=== PATIENT | male | born 1970 | race Two or more races ===

== ENCOUNTER 2016-06-16 22:43 | Emergency (ER) | payer SELFPAY ==
[~2016-06-16] VITALS: Ht 144.8 cm; Wt 63.5 kg
[2016-06-16 22:51] VITALS: BP 146/98
== END 2016-06-16 23:36 | disposition home or self-care (01) ==
LOC: ER 22:44
DX: K64.4 Residual hemorrhoidal skin tags (principal)
CPT/HCPCS: 99282; A4606; Z7610

== ENCOUNTER 2019-07-03 12:01 | Emergency (ER) | payer MEDICAID ==
[~2019-07-03] VITALS: Ht 154.9 cm; Wt 63.5 kg
[2019-07-03 12:12] VITALS: BP 180/90
== END 2019-07-03 13:03 | disposition home or self-care (01) ==
LOC: ER 12:06
DX: B35.9 Dermatophytosis, unspecified (principal)

== ENCOUNTER 2020-08-14 22:08 | Emergency (ER) | payer MEDICAID ==
[~2020-08-14] VITALS: Ht 154.9 cm; Wt 63.5 kg
--- NOTE | 2020-08-14 22:24 | NUR ---
PATIENT TO ER BED C/O LEFT SIDED CHEST PAIN THAT HAS BEEN ONGOING FOR 2x DAYS. PATIENT HAS BEEN DRINKING EVERYDAY WITH AT LEAST 6x CANS OF BEER. PATIENT IS ALERT AND ORIENTED x3. DENIES SHORTNESS OF BREATH. PATIENT IS CONNECTED TO THE CORPORATE SCHEDULER AND PLACED ON 2L OF N/C WITH 99% O2 SATURATION.
[2020-08-14] MEDS ORDERED: ONDANSETRON HCL/PF 4 MG/2 ML VIAL ONE (22:29)
[2020-08-14] MEDS ORDERED: ONDANSETRON HCL/PF 4 MG/2 ML VIAL IVP ONE (22:30)
[2020-08-14 22:32] LABS: BASOPHILS # (AUTO) 0.2 /CMM (0.0-0.2); BASOPHILS % (AUTO) 3.2 % (0.0-2.0); HEMATOCRIT 41 % (39-51); HEMOGLOBIN 14.2 g/dL (13.5-17.5); LYMPHOCYTES # (AUTO) 2.4 /CMM (0.8-4.8); LYMPHOCYTES % (AUTO) 40.9 % (20.0-44.0); MEAN CORPUSCULAR HGB CONC 35 g/dl (31.0-36.0); MEAN CORPUSCULAR VOLUME 98 fL (80-96); MONOCYTES # (AUTO) 0.3 /CMM (0.1-1.30); MONOCYTES % (AUTO) 4.9 % (2.0-12.0); NEUTROPHILS # (AUTO) 2.9 /CMM (1.8-8.9); PLATELET COUNT (AUTO) 175 /CMM (150-450); RED BLOOD CELL COUNT(AUTO) 4.22 MIL/uL (4.5-6.0); WHITE BLOOD COUNT (AUTO) 5.8 K/uL (4.3-11.0)
[2020-08-14 22:42] LABS: CALCIUM, SERUM 9.1 mg/dL (8.5-10.1); CARBON DIOXIDE 26 mmol/L (21-32); CHLORIDE 101 mmol/L (98-107); CREATININE 0.5 mg/dL (0.6-1.3); GLUCOSE 118 mg/dL (74-106); POTASSIUM 3.7 mmol/L (3.5-5.1); SODIUM SERUM 140 mmol/L (136-145); UREA NITROGEN, BLOOD 4 mg/dL (7-18)
--- NOTE | 2020-08-14 22:43 | NUR ---
XRAY AT BEDSIDE.
[2020-08-14 22:48] LABS: ALANINE AMINOTRANSFERASE 106 U/L (12-78); ALBUMIN 3.9 g/dL (3.4-5.0); ALKALINE PHOSPHATASE 144 U/L (46-116); ASPARTATE AMINOTRANSFERASE 211 U/L (15-37); BILIRUBIN,DIRECT 0.2 mg/dL (0.0-0.2); BILIRUBIN,TOTAL 0.4 mg/dL (0.2-1.0); TOTAL PROTEIN, SERUM 8.8 g/dL (6.4-8.2)
--- NOTE | 2020-08-14 23:41 | NUR ---
PANEL PAGED PER ER MD ORDER.
--- NOTE | 2020-08-14 23:49 | NUR ---
PATIENT'S FAMILY MEMBER ,TANIA WAS CALLED PER PATIENT'S REQUEST.
[2020-08-14 23:50] VITALS: BP 138/85
--- NOTE | 2020-08-14 23:52 | NUR ---
LORNA (DAUGHTER IN LAW) CONTACT INFORMATION: [phone]
--- NOTE | 2020-08-15 00:55 | NUR ---
Patient does not wish to proceed with medical care recommended by Dr. Kirkpatrick. Patient given information related to possible complications, up to and including , which could occur as a result of leaving the hospital at this time. Patient verbalizes understanding of risks involved due to leaving against medical advice. Patient has signed AMA form.
--- NOTE | 2020-08-15 01:06 | NUR ---
Patient is picked up by [id number], [place].
--- NOTE | 2020-08-15 01:06 | NUR ---
Patient discharged to home in stable condition. Written and verbal after care instructions given. Patient verbalizes understanding of instruction.
--- NOTE | 2020-08-15 01:06 | NUR ---
IV removed. Catheter intact and site benign. Pressure and 4x4 applied to site. No bleeding noted.
== END 2020-08-15 01:07 | disposition left against medical advice (07) ==
LOC: ER 22:10
DX: R07.89 Other chest pain (principal); K29.20 Alcoholic gastritis without bleeding; F10.129 Alcohol abuse with intoxication, unspecified; Y90.8 Blood alcohol level of 240 mg/100 ml or more; Z98.890 Other specified postprocedural states
CPT/HCPCS: 36415; 71045; 80048; 80076; 80320; 84484; 85025; 85730; 93005; 96374; 99285; J2405; G0480

== ENCOUNTER 2021-01-17 12:01 | Emergency (ER) | payer MEDICAID ==
[~2021-01-17] VITALS: Ht 154.9 cm; Wt 68.0 kg
[2021-01-17 12:12] VITALS: BP 132/88
[2021-01-17] MEDS ORDERED: NAPR-1192 PO (12:48)
--- NOTE | 2021-01-17 13:20 | NUR ---
Patient discharged to home in stable condition. Written and verbal after care instructions given. Patient verbalizes understanding of instruction.
== END 2021-01-17 13:47 | disposition home or self-care (01) ==
LOC: ER 12:25
DX: S52.592A Other fractures of lower end of left radius, initial encounter for closed fracture (principal); F10.10 Alcohol abuse, uncomplicated; F17.200 Nicotine dependence, unspecified, uncomplicated; Y90.9 Presence of alcohol in blood, level not specified; Z79.899 Other long term (current) drug therapy; W01.0XXA Fall on same level from slipping, tripping and stumbling without subsequent striking against object, initial encounter; Y93.89 Activity, other specified; Y92.89 Other specified places as the place of occurrence of the external cause; Y99.8 Other external cause status
CPT/HCPCS: 73110

== ENCOUNTER 2021-05-31 07:45 | Emergency (ER) | payer MEDICAID ==
[~2021-05-31] VITALS: Ht 154.9 cm; Wt 56.7 kg
[~2021-05-31 07:45] MED LIST: NAPR-1192 PO
--- NOTE | 2021-05-31 07:54 | NUR ---
ADONIS FROM HOME, C/O ORAL PAIN/BLEEDING SINCE LAST NIGHT. SEEN AND WAS ADVISED TO SEE A DENTIST YESTERDAY. TO ER BED 13, HOOKED TO MONITOR, CHANGED TO HOSP GOWN, WARM BLANKET PROVIDED. PATIENT AAO x , RESPIRATIONS EVEN AND UNLABORED. DR SEN AT BEDSIDE
[2021-05-31] MEDS ORDERED: MORPHINE SULFATE INJ 2 MG/ML DISP.SYRIN IV ONE (08:00)
[2021-05-31] MEDS ORDERED: ONDANSETRON HCL/PF 4 MG/2 ML VIAL IV ONE (08:00)
[2021-05-31] MEDS ORDERED: IV NS 0.9% 1,000 ML IV ONE (08:00)
[2021-05-31] MEDS ORDERED: ONDANSETRON HCL/PF 4 MG/2 ML VIAL ONE (08:04)
[2021-05-31] MEDS ORDERED: TRANEXAMIC ACID 1,000 MG/10 ML VIAL ONE (08:04)
[2021-05-31] MEDS ORDERED: MORPHINE SULFATE INJ 4 MG/ML DISP.SYRIN ONE (08:05)
[2021-05-31] MEDS ORDERED: TRANEXAMIC ACID 1,000 MG/10 ML VIAL IR ONE (08:30)
[2021-05-31 08:44] LABS: CALCIUM, SERUM 8.9 mg/dL (8.5-10.1); CREATININE 0.6 mg/dL (0.6-1.3); POTASSIUM 3.6 mmol/L (3.5-5.1)
[2021-05-31 08:58] LABS: BASOPHILS # (AUTO) 0.1 K/uL (0.0-0.2); BASOPHILS % (AUTO) 1.4 % (0.0-2.0); EOSINOPHILS % (AUTO) 0.2 % (0.0-6.0); HEMATOCRIT 35 % (39-51); HEMOGLOBIN 11.5 g/dL (13.5-17.5); LYMPHOCYTES # (AUTO) 0.7 K/uL (0.8-4.8); MEAN CORPUSCULAR HGB CONC 33 g/dl (31.0-36.0); MEAN CORPUSCULAR VOLUME 97 fL (80-96); MONOCYTES # (AUTO) 0.4 K/uL (0.1-1.30); MONOCYTES % (AUTO) 6.4 % (2.0-12.0); NEUTROPHILS # (AUTO) 4.4 K/uL (1.8-8.9); PLATELET COUNT (AUTO) 75 K/uL (150-450); RED BLOOD CELL COUNT(AUTO) 3.58 MIL/uL (4.5-6.0); WHITE BLOOD COUNT (AUTO) 5.5 K/uL (4.3-11.0)
[2021-05-31] MEDS ORDERED: IV NS 0.9% 250 ML IV ONE (09:00)
[2021-05-31] MEDS ORDERED: CT SWABBABLE VALVE TRANS SET 1 EA INFUS.SET MC ONE (09:00)
[2021-05-31] MEDS ORDERED: IOHEXOL-300 100 ML VIAL IV ONE (09:00)
--- NOTE | 2021-05-31 09:00 | NUR ---
THE PATIENT IS TAKEN TO CT VIA W/CHAIR
--- NOTE | 2021-05-31 09:18 | NUR ---
THE PATIENT IS BACK FROM CT VIA W/CHAIR
--- NOTE | 2021-05-31 10:52 | NUR ---
CALLED [facility] AND SPOKED TO SHARON. ALSO, FAXED CLINICALS TO [phone]
[2021-05-31] MEDS ORDERED: VANCOMYCIN 1 GM in IV D5W 250 ML IV ONE (11:00)
[2021-05-31] MEDS ORDERED: PIPERACILLIN /TAZOBACTAM 3.375 G in IV D5W 50 ML IV ONE (11:00)
--- NOTE | 2021-05-31 11:02 | NUR ---
FAXED CLINICALS TO
--- NOTE | 2021-05-31 11:03 | NUR ---
CALLED [facility] AND WAS NOTIFIED THAT THEY ARE CURRENTLY AT [facility].
--- NOTE | 2021-05-31 11:11 | NUR ---
FAXED CLINICALS TO [facility]. AWAITING FEEDBACK
[2021-05-31] MEDS ORDERED: AMOX-430 PO (12:59)
--- NOTE | 2021-05-31 13:29 | NUR ---
Patient does not wish to proceed with medical care recommended by Dr. Arreola. Patient given information related to possible complications, up to and including , which could occur as a result of leaving the hospital at this time. Patient verbalizes understanding of risks involved due to leaving against medical advice. Patient has signed AMA form.
[2021-05-31 13:30] VITALS: BP 131/78
== END 2021-05-31 13:31 | disposition left against medical advice (07) ==
LOC: ER 07:53
DX: L02.01 Cutaneous abscess of face (principal); K06.8 Other specified disorders of gingiva and edentulous alveolar ridge; D64.9 Anemia, unspecified; D69.6 Thrombocytopenia, unspecified; Z53.29 Procedure and treatment not carried out because of patient's decision for other reasons; Z20.822 Contact with and (suspected) exposure to COVID-19; F10.20 Alcohol dependence, uncomplicated
CPT/HCPCS: 36415; 70487; 80048; 85025; 85730; 86850; 87040 ×2; 87426; 96361; 96365; 96368; 96375; 99291; C9803; J2270; J2405; J2543; J3370; J7030; J7050; J7060; Q9967

== ENCOUNTER 2021-06-07 12:55 | Emergency (ER) | payer MEDICAID ==
[~2021-06-07] VITALS: Ht 152.4 cm; Wt 59.0 kg
[~2021-06-07 12:55] MED LIST changes: +AMOX-430 PO
[2021-06-07 13:36] VITALS: BP 130/84
--- NOTE | 2021-06-07 14:06 | NUR ---
BIBS C/O RT LOWER LEG RASH AND ITCHING [id number]
[2021-06-07] MEDS ORDERED: CLOT15CR5 TP (15:11)
== END 2021-06-07 15:20 | disposition home or self-care (01) ==
LOC: ER 13:01
DX: B35.9 Dermatophytosis, unspecified (principal); B49 Unspecified mycosis; F17.200 Nicotine dependence, unspecified, uncomplicated

== ENCOUNTER 2021-10-01 19:52 | Emergency (ER) | payer MEDICAID, OTHER ==
[~2021-10-01] VITALS: Ht 152.4 cm; Wt 59.0 kg
[~2021-10-01 19:52] MED LIST changes: +CLOT15CR5 TP
[2021-10-01 20:13] VITALS: BP 134/74
[2021-10-01] MEDS ORDERED: CLOT15CR5 TP (20:18)
--- NOTE | 2021-10-01 20:33 | NUR ---
Patient discharged to home in stable condition. Written and verbal after care instructions given. Patient verbalizes understanding of instruction.
== END 2021-10-01 21:44 | disposition home or self-care (01) ==
LOC: ER 20:02
DX: B35.9 Dermatophytosis, unspecified (principal); F17.200 Nicotine dependence, unspecified, uncomplicated; Z79.899 Other long term (current) drug therapy

== ENCOUNTER 2023-09-16 00:11 | Emergency (ER) | payer OTHER ==
[~2023-09-16] VITALS: Ht 167.6 cm; Wt 68.0 kg
[2023-09-16 01:29] VITALS: BP 156/86; TEMP 97.7
[2023-09-16] MEDS ORDERED: KETOROLAC TROMETHAMINE INJ 30 MG/ML VIAL ONE (01:51)
[2023-09-16] MEDS ORDERED: HYDROCODONE/APAP 5/325MG TABLET ONE (01:51)
[2023-09-16] MEDS ORDERED: TDAP [DIPH/PERTUSSIS/TET] 0.5 ML VIAL IM ONE (01:51)
[2023-09-16] MEDS ORDERED: BACI500P4 TP (01:56)
[2023-09-16] MEDS ORDERED: HYDR-4209 PO (01:56)
[2023-09-16] MEDS ORDERED: CEPH-570 PO (01:56)
[2023-09-16] MEDS ORDERED: KETO10TA2 PO (01:56)
[2023-09-16] MEDS: TDAP [DIPH/PERTUSSIS/TET] 0.5 ML VIAL IM ONE (01:58)
[2023-09-16] MEDS: KETOROLAC TROMETHAMINE INJ 60 MG/2 ML VIAL IM ONE (01:58)
[2023-09-16] MEDS: HYDROCODONE/APAP 5/325MG TABLET PO ONE (01:58)
[2023-09-16 02:46] VITALS: O2SAT 99
== END 2023-09-16 02:47 | disposition home or self-care (01) ==
LOC: ER 00:13
DX: T24.232A Burn of second degree of left lower leg, initial encounter (principal); F17.200 Nicotine dependence, unspecified, uncomplicated; X17.XXXA Contact with hot engines, machinery and tools, initial encounter; Y93.89 Activity, other specified; Y92.89 Other specified places as the place of occurrence of the external cause; Y99.8 Other external cause status
CPT/HCPCS: 99284; 90471; 16020; 90715; 96372; J1885